=== PATIENT | female | born 1980 | race Caucasian/White ===

== ENCOUNTER 2022-09-24 07:47 | Inpatient (IN) | payer MEDICAID ==
[~2022-09-24] VITALS: Ht 160 cm; Wt 112.0 kg
[2022-09-24 08:19] LABS: BASOPHILS % 0.3 % (0.0-2.0); EOSINOPHILS % 1.8 % (0.0-5.0); HEMATOCRIT. 37.3 % (36.0-48.0); HEMOGLOBIN. 12.8 g/dL (12.0-16.0); LYMPHOCYTES % 19.5 % (20.0-50.0); MEAN CORPUSCULAR HEMOGLOBIN 30.6 pg (28.0-32.0); MEAN CORPUSCULAR HGB CONC 34.3 g/dL (31.0-37.0); MEAN CORPUSCULAR VOLUME 89.2 fL (81.0-99.0); MEAN PLATELET VOLUME 7.7 fl (7.4-10.4); MONOCYTES % 4.9 % (2.0-8.0); NEUTROPHILS % 73.5 % (40.0-76.0); PLATELET 215 x1000/uL (130-400); RED BLOOD CELL COUNT 4.18 mill/uL (4.2-5.4); RED CELL DISTRIBUTION WIDTH 13.3 % (11.6-14.6); WHITE BLOOD COUNT 8.5 x1000/uL (4.5-11.0)
[2022-09-24 08:21] LABS: CLARITY URINE CLEAR (CLEAR); COLOR URINE YELLOW (YELLOW); GLUCOSE URINE NEGATIVE (NEGATIVE); KETONES URINE NEGATIVE (NEGATIVE); LEUKOCYTE ESTERASE URINE 1+ (NEGATIVE); NITRITE URINE NEGATIVE (NEGATIVE); OCCULT BLOOD URINE NEGATIVE (NEGATIVE); PH URINE 6.5 (4.5-8.0); PROTEIN URINE TRACE (NEGATIVE); SPECIFIC GRAVITY URINE 1.021 (1.005-1.030); UROBILINOGEN URINE 0.2 E.U./dL (0.2-1.0)
[2022-09-24 08:22] LABS: RBC URINE 0-2 /hpf (0-2); SQUAMOUS EPITHELIAL CELL URINE 1+ /lpf (RARE/1+); YEAST URINE NONE SEEN
[2022-09-24 08:26] LABS: CHLORIDE 110 mEq/L (98-107); INDEX HEMOLYSI 1 (1-3); INDEX ICTERIC 1 (1-4); INDEX LIPEMIC 1 (1-3); SODIUM 133 mEq/L (136-145)
[2022-09-24 08:35] LABS: ALANINE AMINOTRANSFERASE 19 IU/L (13-61); ALBUMIN 2.5 g/dL (3.4-5.0); ASPARTATE AMINOTRANSFERASE 20 IU/L (15-37); BILIRUBIN TOTAL 0.3 mg/dL (0.1-1.0); CALCIUM 8.9 mg/dL (8.5-10.1); CARBON DIOXIDE 20 mEq/L (21-32); CREATININE 0.5 mg/dL (0.6-1.3); GLUCOSE 100 mg/dL (70-105); PROTEIN TOTAL 6.7 g/dL (6.0-8.3); UREA NITROGEN BLOOD 7 mg/dL (7-21)
[2022-09-24 08:40] LABS: BACTERIA URINE 1+
[2022-09-24] MEDS ORDERED: NALOXONE HCL 0.4 MG/ML 1ML VIAL IM PRN (09:30)
[2022-09-24] MEDS ORDERED: METHYLERGONOVINE MALEATE 0.2 MG/ML IM PRN (09:30)
[2022-09-24] MEDS ORDERED: LIDOCAINE HCL 1% 20ML VIAL (Pyxis) INJ INFIL SCH (09:30)
[2022-09-24] MEDS: LACTATED RINGERS 1,000 ML IV SCH ×2 (10:16→22:59)
[2022-09-24] MEDS ORDERED: PNV1TABL76 MT (10:54)
[2022-09-24] MEDS: OXYTOCIN 30 UNITS/500ML NS PMX 500 ML IV SCH (11:48)
[2022-09-24 12:19] LABS: BASOPHILS % 0.5 % (0.0-2.0); EOSINOPHILS % 1.5 % (0.0-5.0); HEMATOCRIT. 35.6 % (36.0-48.0); HEMOGLOBIN. 12.2 g/dL (12.0-16.0); LYMPHOCYTES % 17.6 % (20.0-50.0); MEAN CORPUSCULAR HEMOGLOBIN 30.8 pg (28.0-32.0); MEAN CORPUSCULAR HGB CONC 34.3 g/dL (31.0-37.0); MEAN CORPUSCULAR VOLUME 89.9 fL (81.0-99.0); MEAN PLATELET VOLUME 8.3 fl (7.4-10.4); MONOCYTES % 5.2 % (2.0-8.0); NEUTROPHILS % 75.2 % (40.0-76.0); PLATELET 211 x1000/uL (130-400); RED BLOOD CELL COUNT 3.97 mill/uL (4.2-5.4); RED CELL DISTRIBUTION WIDTH 13.2 % (11.6-14.6); WHITE BLOOD COUNT 8.1 x1000/uL (4.5-11.0)
[2022-09-24 12:42] LABS: CLARITY URINE CLEAR (CLEAR); COLOR URINE YELLOW (YELLOW); GLUCOSE URINE NEGATIVE (NEGATIVE); KETONES URINE NEGATIVE (NEGATIVE); LEUKOCYTE ESTERASE URINE TRACE (NEGATIVE); NITRITE URINE NEGATIVE (NEGATIVE); OCCULT BLOOD URINE NEGATIVE (NEGATIVE); PROTEIN URINE NEGATIVE (NEGATIVE); SPECIFIC GRAVITY URINE 1.019 (1.005-1.030); UROBILINOGEN URINE 0.2 E.U./dL (0.2-1.0)
[2022-09-24 12:45] LABS: RBC URINE 0-2 /hpf (0-2); SQUAMOUS EPITHELIAL CELL URINE 1+ /lpf (RARE/1+); YEAST URINE NONE SEEN
[2022-09-24 12:52] LABS: CHLORIDE 109 mEq/L (98-107); INDEX HEMOLYSI 1 (1-3); INDEX ICTERIC 1 (1-4); INDEX LIPEMIC 1 (1-3); INR 0.9; PARTIAL THROMBOPLASTIN TIME 27.6 sec (23.4-31.0); POTASSIUM 3.9 mEq/L (3.5-5.1); PROTHROMBIN TIME 9.8 sec (9.6-11.0); SODIUM 135 mEq/L (136-145)
[2022-09-24 12:59] LABS: RAPID HIV SCREEN NEGATIVE (NEGATIVE)
[2022-09-24 13:02] LABS: BACTERIA URINE 1+; HYALINE CASTS URINE 0-5 /lpf
[2022-09-24 13:03] LABS: ALANINE AMINOTRANSFERASE 19 IU/L (13-61); ALBUMIN 2.5 g/dL (3.4-5.0); ASPARTATE AMINOTRANSFERASE 20 IU/L (15-37); BILIRUBIN TOTAL 0.4 mg/dL (0.1-1.0); CALCIUM 8.9 mg/dL (8.5-10.1); CARBON DIOXIDE 20 mEq/L (21-32); CREATININE 0.5 mg/dL (0.6-1.3); GLUCOSE 79 mg/dL (70-105); PROTEIN TOTAL 6.7 g/dL (6.0-8.3); UREA NITROGEN BLOOD 6 mg/dL (7-21)
[2022-09-24 13:13] LABS: *AMPHETAMINES SCREEN URINE NEGATIVE (NEGATIVE); *BARBITURATES SCREEN URINE NEGATIVE (NEGATIVE); *BENZODIAZEPINES SCREEN URINE NEGATIVE (NEGATIVE); *COCAINE SCREEN URINE NEGATIVE (NEGATIVE); CANNABINOID URINE SCREEN NEGATIVE (NEGATIVE); ECSTASY MDMA SCREEN URINE NEGATIVE (NEGATIVE); METHADONE URINE SCREEN NEGATIVE (NEGATIVE); OPIATES URINE SCREEN NEGATIVE (NEGATIVE); PHENCYCLIDINE URINE SCREEN NEGATIVE (NEGATIVE)
[2022-09-24 16:03] LABS: HEPATITIS B SURFACE ANTIGEN NEGATIVE
[2022-09-24 16:16] LABS: RUBELLA IGG > 500.0 IU/mL (4.99-10)
[2022-09-24] MEDS ORDERED: GUAIFENESIN 200MG TABLET PO PRN (20:15)
[2022-09-24] MEDS: GUAIFENESIN-DM 200MG-20MG/10ML UDC PO PRN (20:57)
[2022-09-25] MEDS ORDERED: BUTORPHANOL TARTRATE 2 MG/ML VIAL IV NR (01:45)
[2022-09-25] MEDS ORDERED: MEPERIDINE HCL/PF 50MG/ML CPJ IV NR (01:45)
[2022-09-25] MEDS: GUAIFENESIN-DM 200MG-20MG/10ML UDC PO PRN ×3 (06:23→18:14)
[2022-09-25] MEDS: LACTATED RINGERS 1,000 ML IV SCH ×4 (06:24→14:33)
[2022-09-25] MEDS ORDERED: LIDOCAINE 2%/EPINEPHRINE 1:200,000 20 ML VIAL INJ ONE (08:00)
[2022-09-25] MEDS ORDERED: ROPIVACAINE HCL/PF EPIDURAL 200 ML EPI SCH (09:00)
[2022-09-25] MEDS ORDERED: FENTANYL CITRATE/PF 50MCG/ML 2ML VIAL ONE (19:45)
[2022-09-25] MEDS: OXYTOCIN 30 UNITS/500ML NS PMX 500 ML IV SCH (23:06)
[2022-09-26 00:10] VITALS: BP 126/67; PULSE 100; RESP 18; TEMP 99.1; O2SAT 96
[2022-09-26 03:35] VITALS: BP 116/64; PULSE 94; RESP 18; TEMP 98.9
[2022-09-26] MEDS ORDERED: LACTATED RINGERS 1,000 ML IV SCH (04:30)
[2022-09-26] MEDS: OXYTOCIN 30 UNITS/500ML NS PMX 500 ML IV SCH (06:23)
[2022-09-26] MEDS ORDERED: IBUPROFEN 800MG TABLET PO PRN (06:30)
[2022-09-26] MEDS ORDERED: IBUPROFEN 400MG TABLET PO PRN (06:30)
[2022-09-26] MEDS ORDERED: BENZOCAINE/LANOLIN/ALOE VERA SPRAY TOP PRN (06:30)
[2022-09-26] MEDS ORDERED: IBUPROFEN 600MG TABLET PO PRN (06:33)
[2022-09-26] MEDS: GUAIFENESIN-DM 200MG-20MG/10ML UDC PO PRN (06:45)
[2022-09-26] MEDS: PRENATAL VIT/FE FUMARATE/FA TABLET PO SCH (07:52)
[2022-09-26 09:40] LABS: BASOPHILS % 0.3 % (0.0-2.0); EOSINOPHILS % 1.5 % (0.0-5.0); HEMATOCRIT. 32.8 % (36.0-48.0); HEMOGLOBIN. 11.3 g/dL (12.0-16.0); LYMPHOCYTES % 19.8 % (20.0-50.0); MEAN CORPUSCULAR HEMOGLOBIN 30.8 pg (28.0-32.0); MEAN CORPUSCULAR HGB CONC 34.6 g/dL (31.0-37.0); MEAN CORPUSCULAR VOLUME 89.2 fL (81.0-99.0); MEAN PLATELET VOLUME 7.8 fl (7.4-10.4); NEUTROPHILS % 69.4 % (40.0-76.0); PLATELET 185 x1000/uL (130-400); RED BLOOD CELL COUNT 3.67 mill/uL (4.2-5.4); RED CELL DISTRIBUTION WIDTH 13.4 % (11.6-14.6); WHITE BLOOD COUNT 9.8 x1000/uL (4.5-11.0)
[2022-09-26 10:00] VITALS: BP 100/46; PULSE 95; RESP 18; TEMP 98.3; O2SAT 97
[2022-09-26 14:30] VITALS: BP 112/66; PULSE 84; RESP 18; TEMP 98.7
[2022-09-26 19:00] VITALS: O2SAT 98
[2022-09-26 20:00] VITALS: BP 124/70; PULSE 90; RESP 18; TEMP 98.3
[2022-09-27] MEDS: GUAIFENESIN-DM 200MG-20MG/10ML UDC PO PRN (03:34)
[2022-09-27 04:00] VITALS: BP 125/86; PULSE 98; RESP 20; TEMP 98.2
[2022-09-27] MEDS ORDERED: FERROUS SULFATE 325MG TABLET PO SCH (07:30)
[2022-09-27 08:00] VITALS: BP 128/67; PULSE 73; RESP 20; TEMP 97.8; O2SAT 99
[2022-09-27] MEDS ORDERED: SODIUM CHLORIDE 0.9% 10ML VIAL ONE (08:12)
[2022-09-27] MEDS ORDERED: EPHEDRINE SULFATE 50MG/ML VIAL ONE (08:12)
[2022-09-27] MEDS ORDERED: LIDOCAINE HCL/PF 1% 10 MG/ML 5ML VIAL ONE (08:12)
[2022-09-27] MEDS ORDERED: PROPOFOL 200MG/20ML VIAL IV ONE (08:12)
[2022-09-27] MEDS ORDERED: MIDAZOLAM HCL 2 MG/2 ML VIAL ONE (08:13)
[2022-09-27] MEDS ORDERED: FENTANYL CITRATE/PF 50MCG/ML 2ML VIAL ONE (08:13)
[2022-09-27] MEDS ORDERED: PHENYLEPHRINE HCL 10 MG/ML 1ML (IV VIAL) IV ONE (08:13)
[2022-09-27] MEDS ORDERED: ONDANSETRON HCL 4MG/2ML INJ ONE (08:33)
[2022-09-27] MEDS ORDERED: KETOROLAC 60MG/2ML VIAL IM ONE (08:33)
[2022-09-27] MEDS ORDERED: TUSSL PO (09:18)
[2022-09-27] MEDS ORDERED: IBUP-2028 PO (09:18)
[2022-09-27 11:00] VITALS: BP 114/60; PULSE 77; RESP 20; TEMP 98
[2022-09-27 11:22] VITALS: BP 128/67; PULSE 73; RESP 20
[2022-09-27] MEDS: PRENATAL VIT/FE FUMARATE/FA TABLET PO SCH (11:22)
== END 2022-09-27 17:36 | disposition home or self-care (01) | DRG 541 ==
LOC: ER 07:47 → OBSVTOIN 07:50 → 8 EST LDRP 07:50 → ER 08:28 → 8EST 09-26 00:03
PROVIDERS: ADMIT Obstetrics & Gynecology; ATTEND Obstetrics & Gynecology
PROC: 10E0XZZ Delivery of Products of Conception, External Approach (ICD-10-PCS; principal; 2022-09-25)
PROC: 3E0R3BZ Introduction of Anesthetic Agent into Spinal Canal, Percutaneous Approach (ICD-10-PCS; 2022-09-25)
PROC: 00HU33Z Insertion of Infusion Device into Spinal Canal, Percutaneous Approach (ICD-10-PCS; 2022-09-25)
PROC: 0UB70ZZ Excision of Bilateral Fallopian Tubes, Open Approach (ICD-10-PCS; 2022-09-27)
DX: O36.63X0 Maternal care for excessive fetal growth, third trimester, not applicable or unspecified (principal); Z37.0 Single live birth; O24.429 Gestational diabetes mellitus in childbirth, unspecified control; Z3A.39 39 weeks gestation of pregnancy; Z30.2 Encounter for sterilization
CPT/HCPCS: 36415; 76805; 76818; 80053; 80305; 81003; 82962; 85025; 86592; 86703; 86762; 86850; 86900; 87340; 87426; 88302; 99281; G0378; J1885; J2175; J2250; J2370; J2405; J2704; J2795; J3010; J3490; J7120; A4315; J2590